=== PATIENT | female | born 1990 | race Caucasian/White ===

== ENCOUNTER 2020-03-05 10:38 | Outpatient (CLI) | payer MEDICAID ==
[~2020-03-05 10:38] MED LIST: ARIP10TA9 PO; CITA10TA14 PO
== END 2020-03-05 23:59 | disposition home or self-care (01) ==
LOC: RAD 10:38
PROVIDERS: ATTEND Nurse Practitioner Psychiatric/Mental Health
DX: I51.89 Other ill-defined heart diseases (principal)
CPT/HCPCS: 93005